=== PATIENT | female | born 1940 | race Caucasian/White ===

== ENCOUNTER 2019-01-24 13:41 | Outpatient (CLI) | payer MEDICARE, OTHER ==
--- NOTE | 2019-01-24 14:04 | RAD ---
Lumbar spine 2-3 view CLINICAL HISTORY: Pain FINDINGS: No evidence of significant subluxation or abnormal translational motion. There is multileve l degenerative change of the lumbar spine demonstrate, on the basis of lateral views. No compression fracture. IMPRESSION: No significant subluxation or translational motion identified.
== END 2019-01-24 13:42 | disposition home or self-care (01) ==
LOC: TBSIIMAG 13:41
PROVIDERS: ATTEND Neurological Surgery
DX: M54.5 Low back pain (principal)
CPT/HCPCS: 72100

== ENCOUNTER 2019-03-30 07:41 | Observation (INO) | payer MEDICARE, OTHER ==
--- NOTE | 2019-03-29 22:14 | HP ---
REASON FOR ADMISSION: "I am here for my spine surgery." HISTORY OF PRESENT ILLNESS: Ms. Saenz is a very pleasant 78-year-old woman who came to our [facility] in December for evaluation of back and left leg pain. She had low back pain for years and in the 5 months leading up to her evaluation, it began radiating down her left leg to the lateral part of the calf and to the top of the foot. She developed some weakness in lifting her left toes off the floor. She went through medical management, injections in the spine and she continued to have some worsening numbness and weakness in the left leg. She eventually sought medical attention and an MRI scan was done. Head MRI scan showed lateral recess stenosis that was fairly severe around the L5 nerve root at the L4-L5 interspace. There was a moderate stenosis at L5-S1 on the left. We have offered her surgery and she is here to proceed with that. PAST MEDICAL HISTORY: Arthritis, hyperlipidemia, cataracts, and thyroid dysfunction. PAST SURGICAL HISTORY: Hysterectomy, throat surgery, cataract surgery, skin cancer removal and intra-ocular injections for macular degeneration. ADMISSION MEDICATIONS: 1. Calcium. 2. Risedronate. 3. Fenofibrate. 4. Pravastatin. 5. Levothyroxine. ALLERGIES: NO KNOWN DRUG ALLERGIES. SOCIAL HISTORY: Ms. Saenz is a former smoker, but does not use nicotine currently. She takes no drugs and does not use alcohol. FAMILY HISTORY: Both parents are . There is no family history of bleeding diathesis or anesthesia complication. REVIEW OF SYSTEMS: Review of symptoms otherwise negative. PHYSICAL EXAMINATION: GENERAL: Ms. Saenz is 5 feet 9 inches tall, weighs about 170 pounds. NEUROLOGIC: Ms. Saenz is awake and alert. Her speech is fluent. There is no dysarthria or dysphagia. Her cranial nerves are grossly intact. On motor examination, there is weakness in the left ankle. The anterior tib and the EHL are weak on the left compared to the right. The hip flexors, the hamstrings, the quadriceps, the toe flexors and the gastrocnemius all have normal strength bilaterally. The knee jerks and ankle jerks are normal and symmetric. There is no Babinski. Sensory examination shows L5, decreased sensation on the left side compared to a normal right side. The gait is notable for a footdrop on the left and she has a steppage type gait, because of the weakness. ADMISSION FINDINGS AND TEST RESULTS: MR imaging of lumbar spine shows disk disease at L4-5 causing severe left-sided lateral recess stenosis and compression of the L5 nerve root. There was moderate stenosis around the L5 nerve root at L5-S1. IMPRESSION: L5 radiculopathy from disk disease. PLAN: I have offered Ms. Saenz, the surgical procedure to treat her disk disease and decompress the L5 nerve root. She would like to proceed. Informed consent: In the office, we discussed indications, risks, benefits, alternatives, and expected outcomes from surgery. The risks we discussed included, but were not limited to, bleeding, infection, CSF leak, nerve damage, cauda equina injury, paralysis, incontinence, wheelchair dependence, cardiopulmonary complications of anesthesia, and . Future risks include spinal instability and need for future spine surgery. She understands all these risks and wants to proceed. Job ID: [id number]
[2019-03-30 09:36] LABS: Hemoglobin 15.3 g/dL (12.0-16.0); Mean Corpuscular HGB CONC 33.7 g/dL (32.0-36.0); Mean Corpuscular Hemoglobin 31.7 pg (27.0-31.0); Mean Corpuscular Volume 93.9 fL (78.0-98.0); Mean Platelet Volume 8.7 fL (7.4-10.4); Platelet Count 148 thou/uL (130-400); RBC Distribution Width 11.5 % (11.5-14.5); Red Blood Cell (RBC) Count 4.84 mill/uL (4.20-5.40); White Blood Cell (WBC) Count 8.1 thou/uL (4.8-10.8)
[2019-03-30] MEDS ORDERED: PROPOFOL 200 MG/20 ML VIAL ONE (09:55)
[2019-03-30] MEDS ORDERED: Glycopyrrolate 0.2 MG/ML 5 ML SYRINGE ONE (09:55)
[2019-03-30] MEDS ORDERED: ePHEDrine/0.9% NaCl/PF SYRINGE 50 mg/10 ml ONE (09:55)
[2019-03-30] MEDS ORDERED: Rocuronium Bromide 10 MG/ML (10ML VIAL) ONE (09:55)
[2019-03-30] MEDS ORDERED: Ondansetron PF 4 MG/2 ML Vial ONE (09:55)
[2019-03-30] MEDS ORDERED: Lidocaine 1% PF 5 ML VIAL ONE ×2 (09:55→10:40)
[2019-03-30] MEDS ORDERED: Ketorolac Tromethamine 30 MG/ML VIAL ONE (09:55)
[2019-03-30] MEDS ORDERED: PROPOFOL 20 ML ONE (10:40)
[2019-03-30] MEDS ORDERED: Rocuronium Bromide 50 MG/5 ML VIAL ONE (10:40)
[2019-03-30 11:19] LABS: INR-International Normal Ratio 1.1; PTT 29.5 SEC (22.9-36.1); Prothrombin Time 13.8 SEC (12.0-14.7)
[2019-03-30] MEDS ORDERED: Thrombin 5000 UNITS/5 ML VIAL ONE (11:35)
[2019-03-30] MEDS ORDERED: Bupivacaine PF 0.5% 30 ML VIAL ONE (11:35)
[2019-03-30] MEDS ORDERED: Fentanyl 100 MCG/2 ML VIAL ONE (11:52)
[2019-03-30] MEDS ORDERED: Nitroglycerin 2% Ointment 1 INCH/1 GM Packet ONE ×2 (12:33→12:50)
[2019-03-30] MEDS ORDERED: Nitroglycerin 50 MG/250 ML BOT 250 ML ONE (12:58)
[2019-03-30] MEDS ORDERED: HYDROcodone/Acetaminophen 7.5/325 mg Tablet PO PRN ×2 (14:17)
[2019-03-30] MEDS ORDERED: Ondansetron PF 4 MG/2 ML Vial IVP PRN (14:17)
[2019-03-30] MEDS ORDERED: Morphine 2 MG/ML SYRINGE SLOW IVP PRN (14:17)
[2019-03-30] MEDS ORDERED: diphenhydrAMINE 25 MG CAP PO PRN (14:17)
[2019-03-30] MEDS ORDERED: tiZANidine HCl 4 MG TAB PO PRN (14:17)
[2019-03-30] MEDS ORDERED: Morphine 4 MG/ML VIAL SLOW IVP PRN (14:17)
[2019-03-30] MEDS ORDERED: Milk Of Magnesia 30 ML UDCUP PO PRN (14:17)
[2019-03-30] MEDS ORDERED: Promethazine HCl 25 MG/ML VIAL IM PRN ×2 (14:17→14:31)
[2019-03-30] MEDS ORDERED: Acetaminophen/Codeine 30-300mg Tablet PO PRN ×2 (14:17)
[2019-03-30] MEDS ORDERED: Bisacodyl 10 MG SUPP PR PRN (14:17)
[2019-03-30] MEDS ORDERED: Promethazine 25 MG TAB PO PRN (14:17)
[2019-03-30] MEDS ORDERED: Promethazine HCl 12.5 MG SUPP PR PRN (14:17)
[2019-03-30] MEDS ORDERED: diphenhydrAMINE 50 MG/ML VIAL IVP PRN (14:17)
[2019-03-30] MEDS ORDERED: Mag-Al 1200 mg/1200 mg/30 ML UDCUP PO PRN (14:17)
[2019-03-30] MEDS ORDERED: Acetaminophen 650 MG Suppository PR PRN (14:17)
[2019-03-30] MEDS ORDERED: Acetaminophen 325 MG TAB PO PRN (14:17)
[2019-03-30] MEDS ORDERED: RISEDRONATE SODIUM 150 MG PO SCH (14:30)
[2019-03-30] MEDS ORDERED: Morphine Sulfate 2 MG/ML SYRINGE SLOW IVP PRN (14:31)
[2019-03-30] MEDS ORDERED: Ondansetron HCl/PF 4 MG/2 ML Vial IVP PRN (14:31)
[2019-03-30] MEDS ORDERED: PACU-Morphine 4MG/ML VIAL SLOW IVP PRN (14:31)
[2019-03-30] MEDS ORDERED: Promethazine HCl 25 MG/ML VIAL SLOW IVP PRN (14:31)
[2019-03-30] MEDS ORDERED: HYDROmorphone 2 MG/ML VIAL SLOW IVP PRN (14:31)
[2019-03-30] MEDS ORDERED: Scopolamine 1.5 mg/72 hour Patch TD SCH (15:00)
[2019-03-30 16:59] VITALS: BMI 29.2
[2019-03-30] MEDS: Sodium Chloride 0.9% 1,000 ML IV SCH (17:10)
[2019-03-30] MEDS: CEFAZOLIN 2 GM in Premix Bag 1 BAG IVPB SCH (17:12)
--- NOTE | 2019-03-30 17:46 | OP ---
DATE OF PROCEDURE: 03/30/2019 SUPERVISOR COREMAKER: Aman Centeno PA-C PREOPERATIVE INDICATION: Treat pain and prevent neurological deterioration. PREOPERATIVE DIAGNOSIS: L4-L5 intervertebral disk disease with L5 radiculopathy, left greater than right. POSTOPERATIVE DIAGNOSIS: L4-L5 intervertebral disk disease with L5 radiculopathy, left greater than right. PROCEDURE PERFORMED: Partial hemilaminectomy, medial facetectomy, and microdiskectomy, left L4-L5 and right L4-L5. PREOPERATIVE MEDICATION: Ancef 2 g IV. DRAIN NUMBER: Zero. DRAIN TYPE: None. DESCRIPTION OF PROCEDURE: The patient was brought to the operating room. General endotracheal anesthesia was induced. The patient was positioned prone on the operating table with chest and hips supported by gel-filled chest rolls. A lateral fluoro radiograph was used to plan our lumbar incision. The lumbar skin was sterilely prepped and draped. We opened our incision in midline with a 10 blade knife. We controlled bleeding with bipolar and monopolar cautery. We dissected to the thoracodorsal fascia. We first incised the fascia left of the midline and reflected the paraspinal muscles off the spinous process and lamina of L4 and L5. We placed a marker on the facet joint and took a lateral fluoro radiograph to confirm the level upon which we were operating. We then used Kerrison rongeur to fashion a partial hemilaminectomy and medial facetectomy. We removed yellow ligament and then brought the operating microscope into the field. Under microscopic magnification and using microsurgical techniques, we carefully completed our medial facetectomy and foraminotomy. We identified the common thecal sac and the traversing L5 nerve root. We gently retracted these medially and ventral to these, we found intervertebral disk protrusion. We incised the annulus and removed disk contents using curettes and rongeurs. We reached into the interspace and all loose fragments of disk were removed. The remainder of the disk was firmly adherent to the endplates. We irrigated with bacitracin irrigation. We performed enough of a foraminotomy over the L5 nerve root. Then, a Morley ball could pass through the newly decompressed lateral recess and out the foramen without impingement. We then turned our attention to the right side. We incised the fascia right of the midline and reflected paraspinal muscles off the spinous process and lamina of L4 and L5 on the right and took another radiograph to confirm that we were still at the L4-L5 interspace. We performed small medial facetectomy, hemilaminectomy, and foraminotomy. We removed yellow ligament. We decompressed the L5 nerve root in the lateral recess and out the foramen. Here, the annulus was more calcified and we did not open it. We irrigated copiously with bacitracin irrigation. We infused local anesthetic in the paraspinal muscles on both sides. We closed the wound in anatomical layers and we applied a sterile dressing. This was a clean case, no contamination. Job ID: [id number]
[2019-03-30 18:04] LABS: ALT (SGPT) 21 U/L (8-55); AST (SGOT) 19 U/L (5-34); Albumin 3.5 g/dL (3.4-4.8); Alkaline Phosphatase 28 U/L (40-110); Anion Gap 18 mmol/L (10-20); BUN (Urea Nitrogen) 15 mg/dL (9.8-20.1); Bilirubin, Total 0.3 mg/dL (0.2-1.2); Calc. Creatinine Clearance 18 mL/min (70-130); Calcium 7.7 mg/dL (7.8-10.44); Carbon Dioxide 23 mmol/L (23-31); Chloride 96 mmol/L (98-107); Estimated GFR-MDRD 13; Globulin 2.3 g/dL (2.4-3.5); Glucose 330 mg/dL (83-110); Potassium 3.5 mmol/L (3.5-5.1); Protein, Total 5.8 g/dL (6.0-8.3); Sodium 133 mmol/L (136-145)
--- NOTE | 2019-03-30 18:42 | RAD ---
PA AND LATERAL CHEST: 03/30/19 HISTORY: Chest pain. Heart size is slightly enlarged. Mediastinal structures are unremarkable. Lungs are clear of infiltrates. There are no signs of failur e. The bones are demineralized. IMPRESSION: Minimal cardiomegaly. POS: MALACHI
[2019-03-30] MEDS ORDERED: Pravastatin Sodium 20 MG TAB PO SCH (21:00)
[2019-03-30] MEDS ORDERED: Famotidine/PF 20 mg/2ml Vial SLOW IVP SCH (21:00)
[2019-03-30] MEDS ORDERED: Fenofibrate 48 MG TAB PO SCH (21:00)
[2019-03-30] MEDS ORDERED: Sodium Chloride 0.9% 1,000 ML IV SCH (21:45)
[2019-03-30 23:02] LABS: Anion Gap 11 mmol/L (10-20); BUN (Urea Nitrogen) 16 mg/dL (9.8-20.1); CK (CPK) 306 U/L (29-168); Calc. Creatinine Clearance 49 mL/min (70-130); Calcium 8.2 mg/dL (7.8-10.44); Carbon Dioxide 25 mmol/L (23-31); Chloride 108 mmol/L (98-107); Estimated GFR-MDRD 44; Glucose 110 mg/dL (83-110); Potassium 4.1 mmol/L (3.5-5.1); Sodium 140 mmol/L (136-145)
[2019-03-30 23:12] LABS: Bacteria/HPF None Seen HPF (None Seen); Bilirubin Negative (Negative); Blood, Urine Negative (Negative); Clarity Clear (Clear); Glucose, Urine (Dipstick) Normal (Negative); Leukocyte 25 Leu/uL (Negative); Nitrite Negative (Negative); Protein, Urine (Dipstick) Negative (Neg-Trace); RBC/HPF 0-3 HPF (0-3); Squamous Epithelial None Seen HPF (0-3); Urobilinogen Normal mg/dL (Less than 2); WBC/HPF 0-3 HPF (0-3)
[2019-03-30 23:15] LABS: Urine Culture Reflex No No
[2019-03-30 23:28] LABS: Creatinine, Urine 36.65 mg/dL (47-110); Protein, Urine Random Quant Less than 10 mg/dL (1-14); Sodium, Urine 50 mmol/L (Not Available)
[2019-03-31] MEDS: CEFAZOLIN 2 GM in Premix Bag 1 BAG IVPB SCH (00:04)
[2019-03-31] MEDS: Sodium Chloride 0.9% 1,000 ML IV SCH (05:08)
[2019-03-31 05:10] LABS: Albumin 3.4 g/dL (3.4-4.8); Anion Gap 11 mmol/L (10-20); BUN (Urea Nitrogen) 15 mg/dL (9.8-20.1); BUN/Creatinine Ratio 13.27; CK (CPK) 303 U/L (29-168); Calc. Creatinine Clearance 51 mL/min (70-130); Calcium 8.3 mg/dL (7.8-10.44); Carbon Dioxide 23 mmol/L (23-31); Chloride 110 mmol/L (98-107); Estimated GFR-MDRD 46; Glucose 99 mg/dL (83-110); Phosphorus 2.7 mg/dL (2.3-4.7); Potassium 4.4 mmol/L (3.5-5.1); Sodium 140 mmol/L (136-145)
[2019-03-31 05:28] LABS: #Eosinphils 0.1 thou/uL (0.0-0.7); #Lymphocytes 1.5 thou/uL (1.20-3.40); #Monocytes 0.5 thou/uL (0.11-0.59); #Neutrophils 5.1 thou/uL (1.40-6.50); %Basophils 0.5 % (0.0-1.0); %Eosinophils 1.3 % (0.0-10.0); %Lymphocytes 20.7 % (21.0-51.0); %Neutrophils 70.6 % (42.0-75.0); Mean Corpuscular HGB CONC 33.7 g/dL (32.0-36.0); Mean Corpuscular Hemoglobin 31.8 pg (27.0-31.0); Mean Corpuscular Volume 94.5 fL (78.0-98.0); Mean Platelet Volume 7.7 fL (7.4-10.4); Platelet Count 146 thou/uL (130-400); RBC Distribution Width 11.4 % (11.5-14.5); Red Blood Cell (RBC) Count 3.76 mill/uL (4.20-5.40); White Blood Cell (WBC) Count 7.2 thou/uL (4.8-10.8)
[2019-03-31] MEDS ORDERED: Levothyroxine Sodium 88 MCG TAB PO SCH (06:00)
--- NOTE | 2019-03-31 06:51 | PRG ---
DATE OF SERVICE: 03/31/2019 Ms. Saenz is one day out from microdiskectomy on the left and hemilaminectomy with foraminotomy on the right at L4-5. She notices significant improvement in the function of her left ankle. Radiating radicular pain is gone and she did not even have leg cramps overnight. Have been stable with blood pressures between the 130s and 160s. There are no fevers recorded. On examination, there is improvement in the left footdrop. There is still numbness in L5 distribution, left greater than right. Ms. Saenz is ready for discharge. Her EKG changes suggest she has a reversible ischemia with a threshold blood pressure of around 120 to 130. She has been instructed to follow up with her teleprinter installer after discharge. Home-going instructions on wound care and activity restrictions as well. Followup arrangements have been made. Job ID: [id number] MTDD
--- NOTE | 2019-03-31 08:15 | CON ---
DATE OF CONSULTATION: 03/30/2019 TIME OF ASSESSMENT: 1900 hours. REASON FOR CONSULTATION: Medical management. HISTORY OF PRESENT ILLNESS: Ms. Saenz is an 78-year-old woman who apparently was taken to surgery today for a diskectomy of L4-L5 by Dr. Glez earlier today. Apparently during the procedure, the patient had ST-depression. She therefore was recommended admission to the hospital for observation. The patient states she did not experience any symptoms today. Reports feeling well and herself. Denies having any chest pain, palpitations, or shortness of breath. Denies having any history of heart disease. She feels well and herself at this present time and is without any complaints. PAST MEDICAL HISTORY: 1. Arthritis. 2. Hyperlipidemia. 3. Cataracts. 4. Thyroid dysfunction. PAST SURGICAL HISTORY: 1. Hysterectomy. 2. Throat surgery. 3. Cataract surgery. 4. Skin cancer removal. 5. Intra-ocular injections for macular degeneration. SOCIAL HISTORY: The patient is fully dependent. She is a former smoker but no longer smokes. Denies any alcohol consumption or illicit drug use. FAMILY HISTORY: Noncontributory. ALLERGIES: NO KNOWN DRUG ALLERGIES. CURRENT MEDICATIONS: 1. Fenofibrate. 2. Levothyroxine. 3. Pravastatin. 4. Risedronate. 5. MiraLAX. PHYSICAL EXAMINATION: GENERAL: The patient appears well-developed, well-nourished. She is in no acute distress. VITAL SIGNS: Temperature 96.2, pulse 58, blood pressure 162/72, respirations 16, and O2 saturation 98% on room air. HEENT: Normocephalic and atraumatic. Pupils are equal, round, and reactive to light. No sclerae icterus. Oropharynx is clear. NECK: Supple. LUNGS: Clear to auscultation bilaterally without any wheezes, rales, or rhonchi. CARDIAC: Regular rate and rhythm. ABDOMEN: Soft, nontender, and nondistended. Normoactive bowel sounds present. EXTREMITIES: No lower leg swelling or edema. NEUROLOGIC: Alert and oriented x3. SKIN: Warm and dry. IMPRESSION AND PLAN: Ms. Saenz is a pleasant 78-year-old woman who is status post lumbar spine diskectomy with concerns for ST-depression during her procedure, prompting referral for observation overnight. The patient did not have any associated symptoms and has no known history of coronary artery disease. She does have a history of hyperlipidemia and thyroid disorder. The patient is asymptomatic at present. Thank you for this consultation. We will continue to follow the patient with you. We will plan to do the followin. Continuous cardiac monitoring. 2. Trend troponin x2. We will obtain baseline laboratory studies including CBC and BMP. We will check a BNP as well as magnesium and TSH. 3. We will obtain baseline chest x-ray. 4. We will order an echo. The patient has never had any cardiac investigations in the past. 5. Gastrointestinal prophylaxis with famotidine. 6. For chronic constipation she has been restarted on her home medications by Dr. Glez. 7. Code status full. Surrogate decision maker is her , Cecil Saenz. ADDENDUM: Laboratory studies are notable for severe renal disease. The patient with a creatinine of 3.32 and a GFR of 13. Her BUN is 15. Initial troponin negative. The patient receiving IV fluids at 75 mL/h. Following discussion with Dr. Houser, he advised 1 liter bolus of normal saline. Consultation placed to Nephrology. We will repeat renal function following the bolus. BNP is normal at 95.4. Chest x-ray shows mild cardiomegaly. Therefore, we will proceed with echo. The patient remains asymptomatic and is without any complaints. Job ID: [id number]
[2019-03-31 12:12] VITALS: TEMP 98.3
[2019-03-31 13:31] VITALS: BP 157/66
--- NOTE | 2019-04-03 00:10 | EKG ---
Test Reason : Blood Pressure : / mmHG Vent. Rate : 055 BPM Atrial Rate : 055 BPM P-R Int : 200 ms QRS Dur : 086 ms QT Int : 462 ms P-R-T Axes : 058 -33 085 degrees QTc Int : 441 ms Sinus bradycardia with sinus arrhythmia Left axis deviation Abnormal ECG No previous ECGs available Confirmed by Leonid VALENZUELA ([id number]) on 04/03/2019 12:10:22 AM Referred By: IRENE Confirmed By:Leonid VALENZUELA
== END 2019-03-31 13:41 | disposition home or self-care (01) ==
LOC: SDC 07:41 → 2NO 14:43 → ERHOLD 15:05 → 2NO 17:26 → SDC 18:08
PROVIDERS: ADMIT Neurological Surgery; ATTEND Neurological Surgery
PROC: 01NB0ZZ Release Lumbar Nerve, Open Approach (ICD-10-PCS; principal; 2019-03-30)
PROC: 0ST20ZZ Resection of Lumbar Vertebral Disc, Open Approach (ICD-10-PCS; 2019-03-30)
DX: M48.061 Spinal stenosis, lumbar region without neurogenic claudication (principal); M51.16 Intervertebral disc disorders with radiculopathy, lumbar region; M48.07 Spinal stenosis, lumbosacral region; E78.5 Hyperlipidemia, unspecified; G47.30 Sleep apnea, unspecified; M19.90 Unspecified osteoarthritis, unspecified site; R94.31 Abnormal electrocardiogram [ECG] [EKG]; E03.9 Hypothyroidism, unspecified; Z87.891 Personal history of nicotine dependence; Z79.899 Other long term (current) drug therapy; Z99.89 Dependence on other enabling machines and devices
CPT/HCPCS: 36415; 71046; 76000; 80053; 80069; 81001; 82306; 82550; 82570; 83735; 83880; 83970; 84156; 84300; 84484; 85025; 85027; 85610; 85730; 93005; 93010; 93306; 94760; 96361; 96374; 96375; 96376; G0378; J0690; J1885; J2001; J2405; J2704; J3010; J3370; J3490; S0020; S0028

== ENCOUNTER 2022-07-14 10:15 | Outpatient (CLI) | payer MEDICARE, OTHER | END 2022-07-14 10:16 | disposition home or self-care (01) | LOC: TBSIIMAG 10:15 | PROVIDERS: ATTEND Physician Assistant | DX: M48.56XA Collapsed vertebra, not elsewhere classified, lumbar region, initial encounter for fracture (principal); M51.36 Other intervertebral disc degeneration, lumbar region; M51.37 Other intervertebral disc degeneration, lumbosacral region; M47.816 Spondylosis without myelopathy or radiculopathy, lumbar region | CPT/HCPCS: 72100 ==

== ENCOUNTER 2025-01-28 16:55 | Inpatient (IN) | payer MEDICARE, OTHER ==
[2025-01-28] MEDS ORDERED: Melatonin 3 MG TAB PO PRN (18:37)
[2025-01-28] MEDS ORDERED: Acetaminophen/Codeine 30-300mg Tablet PO PRN (18:37)
[2025-01-28] MEDS ORDERED: Ondansetron PF 4 MG/2 ML Vial IVP PRN (18:37)
[2025-01-28] MEDS ORDERED: Senokot S 8.6-50 MG TAB PO PRN (18:37)
[2025-01-28] MEDS ORDERED: Guaifenesin DM 100-10/5 ML UDCUP PO PRN (18:37)
[2025-01-28] MEDS ORDERED: Calcium Carbonate 500 MG ChewTAB PO PRN (18:37)
[2025-01-28] MEDS ORDERED: Pharmacy to Dose: VANC IVPB PRN (21:11)
[2025-01-28] MEDS ORDERED: Vancomycin 1 GM/200 ML (FROZEN) BAG ONE (21:17)
[2025-01-28] MEDS: Vancomycin 1 GM in Premix 1 BAG IVPB SCH (21:27)
[2025-01-28] MEDS ORDERED: Gabapentin 100 MG CAP ONE (21:40)
[2025-01-28] MEDS: Gabapentin 100 MG CAP PO SCH (21:50)
[2025-01-28] MEDS: VANCOMYCIN 1.75 GM/350 ML Premix BAG IVPB SCH (21:51)
[2025-01-28] MEDS: Simvastatin 10 MG TAB PO SCH (22:54)
[2025-01-29 01:49] VITALS: BMI 18.5
[2025-01-29] MEDS: Acetaminophen 325 MG TAB PO PRN (06:16)
[2025-01-29 07:52] LABS: #Basophils 0.05 10x3/uL (0.0-0.2); #Eosinophils 0.03 10x3/uL (0.0-0.7); #Monocytes 0.93 10x3/uL (0.11-0.59); #Neutrophils 10.14 10x3/uL (1.40-6.50); %Basophils 0.4 % (0.0-1.0); %Eosinophils 0.2 % (0.0-10.0); %Lymphocytes 8.6 % (21.0-51.0); %Monocytes 7.5 % (0.0-10.0); %Neutrophils 82.0 % (42.0-75.0); Hematocrit 32.3 % (36.0-47.0); Hemoglobin 10.5 g/dL (12.0-16.0); Mean Corpuscular Hemoglobin 30.5 pg (27.0-31.0); Mean Corpuscular Volume 93.9 fL (78.0-98.0); Platelet Count 208 10x3/uL (130-400); Red Blood Cell (RBC) Count 3.44 mill/uL (4.20-5.40); White Blood Cell (WBC) Count 12.38 10x3/uL (4.8-10.8)
[2025-01-29 08:13] LABS: Anion Gap 17 mmol/L (10-20); BUN (Urea Nitrogen) 31 mg/dL (9.8-20.1); Calc. Creatinine Clearance 20 mL/min (70-130); Calcium 8.7 mg/dL (7.8-10.44); Carbon Dioxide 20 mmol/L (23-31); Chloride 106 mmol/L (98-107); Glucose 105 mg/dL (83-110); Potassium 3.8 mmol/L (3.5-5.1); Sodium 139 mmol/L (136-145)
[2025-01-29] MEDS ORDERED: Vancomycin Dose by Levels Sliding Scale (Wt <71) FS SCH (08:30)
[2025-01-29] MEDS: Pantoprazole 40 MG VIAL IVP SCH (08:41)
[2025-01-29] MEDS: cefTRIAXone\\ROCEPHIN 2 GM in Sodium Chloride 0.9% 100 ML IVPB SCH (08:41)
[2025-01-29] MEDS: FLU (Fluad Triv) 25-26 (65UP)PF 45 MCG/0.5 ML Syringe IM ONE (08:44)
[2025-01-29] MEDS ORDERED: PROPOFOL 200 MG/20 ML VIAL ONE (13:31)
[2025-01-29] MEDS ORDERED: Ondansetron PF 4 MG/2 ML Vial ONE (13:34)
[2025-01-29] MEDS ORDERED: fentaNYL PF 100 MCG/2 ML SYRINGE ONE (13:36)
[2025-01-29] MEDS ORDERED: Oxybutynin 5 MG TAB PO PRN (14:04)
[2025-01-29] MEDS: Enoxaparin 30 MG (0.3 mL) SYRINGE SC SCH (21:31)
[2025-01-29 21:34] LABS: Vancomycin, Trough 14.3 ug/mL
[2025-01-30 05:50] LABS: #Basophils 0.03 10x3/uL (0.0-0.2); #Eosinophils Less than 0.03 10x3/uL (0.0-0.7); #Monocytes 0.46 10x3/uL (0.11-0.59); #Neutrophils 9.19 10x3/uL (1.40-6.50); %Basophils 0.3 % (0.0-1.0); %Eosinophils 0.0 % (0.0-10.0); %Lymphocytes 9.1 % (21.0-51.0); %Monocytes 4.2 % (0.0-10.0); %Neutrophils 84.3 % (42.0-75.0); Hematocrit 33.4 % (36.0-47.0); Hemoglobin 11.3 g/dL (12.0-16.0); Mean Corpuscular Hemoglobin 30.8 pg (27.0-31.0); Mean Corpuscular Volume 91.0 fL (78.0-98.0); Platelet Count 238 10x3/uL (130-400); Red Blood Cell (RBC) Count 3.67 mill/uL (4.20-5.40); White Blood Cell (WBC) Count 10.90 10x3/uL (4.8-10.8)
[2025-01-30 06:15] LABS: Vancomycin, Random 19.8 ug/mL (See Comment)
[2025-01-30 06:25] LABS: Anion Gap 11 mmol/L (10-20); BUN (Urea Nitrogen) 30 mg/dL (9.8-20.1); Calc. Creatinine Clearance 26 mL/min (70-130); Calcium 8.8 mg/dL (7.8-10.44); Carbon Dioxide 23 mmol/L (23-31); Chloride 108 mmol/L (98-107); Glucose 112 mg/dL (83-110); Magnesium 2.1 mg/dL (1.6-2.6); Potassium 4.2 mmol/L (3.5-5.1); Sodium 138 mmol/L (136-145)
[2025-01-31 06:26] LABS: #Basophils 0.04 10x3/uL (0.0-0.2); #Eosinophils 0.14 10x3/uL (0.0-0.7); #Monocytes 0.57 10x3/uL (0.11-0.59); #Neutrophils 7.62 10x3/uL (1.40-6.50); %Basophils 0.4 % (0.0-1.0); %Eosinophils 1.4 % (0.0-10.0); %Lymphocytes 15.8 % (21.0-51.0); %Monocytes 5.6 % (0.0-10.0); %Neutrophils 75.2 % (42.0-75.0); Hematocrit 32.2 % (36.0-47.0); Hemoglobin 10.4 g/dL (12.0-16.0); Mean Corpuscular Hemoglobin 30.0 pg (27.0-31.0); Mean Corpuscular Volume 92.8 fL (78.0-98.0); Platelet Count 240 10x3/uL (130-400); Red Blood Cell (RBC) Count 3.47 mill/uL (4.20-5.40); White Blood Cell (WBC) Count 10.13 10x3/uL (4.8-10.8)
[2025-01-31 06:37] LABS: Anion Gap 12 mmol/L (10-20); BUN (Urea Nitrogen) 30 mg/dL (9.8-20.1); Calc. Creatinine Clearance 29 mL/min (70-130); Calcium 8.7 mg/dL (7.8-10.44); Carbon Dioxide 23 mmol/L (23-31); Chloride 109 mmol/L (98-107); Glucose 93 mg/dL (83-110); Potassium 4.0 mmol/L (3.5-5.1); Sodium 140 mmol/L (136-145)
[2025-01-31] MEDS: Pantoprazole 40 MG DR.TAB PO SCH (08:13)
[2025-01-31] MEDS ORDERED: Pantoprazole 40 MG GRANULES PACKET PO SCH (09:00)
[2025-01-31 10:27] LABS: Glucose, Urine (Dipstick) Normal (Negative); Leukocyte 500 Leu/uL (Negative); Protein, Urine (Dipstick) 20 mg/dL (Neg-Trace); Specific Gravity, Urine 1.012 (1.002-1.036)
[2025-01-31 10:28] LABS: RBC/HPF 21-50 HPF (0-3); WBC/HPF Greater than 50 HPF (0-3)
[2025-01-31 10:46] LABS: Bacteria/HPF Rare-Few HPF (None Seen)
[2025-01-31 12:14] VITALS: BP 145/69; TEMP 98
== END 2025-01-31 13:42 | disposition home or self-care (01) | DRG 661 ==
LOC: ERS 16:55 → ERHOLD 18:32 → T4-B 23:53
PROVIDERS: ADMIT Student in an Organized Health Care Education/Training Program; ATTEND Internal Medicine
PROC: 0T768DZ Dilation of Right Ureter with Intraluminal Device, Via Natural or Artificial Opening Endoscopic (ICD-10-PCS; principal; 2025-01-30)
DX: N13.6 Pyonephrosis (principal); N17.9 Acute kidney failure, unspecified; E78.5 Hyperlipidemia, unspecified; E03.9 Hypothyroidism, unspecified; N18.30 Chronic kidney disease, stage 3 unspecified; I12.9 Hypertensive chronic kidney disease with stage 1 through stage 4 chronic kidney disease, or unspecified chronic kidney disease; B96.20 Unspecified Escherichia coli [E. coli] as the cause of diseases classified elsewhere; N35.92 Unspecified urethral stricture, female; Z79.890 Hormone replacement therapy; Z90.49 Acquired absence of other specified parts of digestive tract; Z95.0 Presence of cardiac pacemaker; Z90.710 Acquired absence of both cervix and uterus; Z98.890 Other specified postprocedural states; Z87.891 Personal history of nicotine dependence
CPT/HCPCS: 36415; 80048; 80202; 81001; 83735; 84100; 85025; 86141; 87086; 90653; 99285; A4333; C1769; C2617; J0696; J1100; J1650; J2405; J2470; J2704; J3373; J3375; J7120; Q9967

== ENCOUNTER 2025-02-12 08:12 | Day surgery (SDC) | payer MEDICARE, OTHER ==
[2025-02-09 08:55] VITALS: BMI 30.2
[2025-02-12] MEDS ORDERED: PROPOFOL 20 ML ONE (10:24)
[2025-02-12] MEDS ORDERED: Rocuronium Bromide 10 MG/ML (10ML VIAL) ONE ×2 (10:25→11:35)
[2025-02-12] MEDS ORDERED: LevoFLOXacin D5W 500 mg (100 mL) BAG ONE (10:50)
[2025-02-12] MEDS ORDERED: fentaNYL PF 100 MCG/2 ML SYRINGE ONE (11:12)
[2025-02-12 11:28] LABS: INR-International Normal Ratio 1.2; Prothrombin Time 14.8 sec (12.0-14.7)
[2025-02-12 11:29] LABS: PTT 32.1 sec (22.9-36.1)
[2025-02-12] MEDS ORDERED: PROPOFOL 200 MG/20 ML VIAL ONE (11:35)
[2025-02-12] MEDS ORDERED: SUGAMMADEX SODIUM 200 MG/2 ML VIAL ONE (11:43)
[2025-02-12] MEDS ORDERED: Ondansetron PF 4 MG/2 ML Vial ONE (11:43)
[2025-02-12] MEDS ORDERED: hydrALAZINE 20 MG/ML VIAL ONE (12:17)
[2025-02-12] MEDS ORDERED: Oxybutynin 5 MG TAB ONE (12:36)
[2025-02-20 16:14] LABS: CA Oxalate Dihydrate 30 % (.); CA Oxalate Monohydrate 40 % (.); Color Tan (.); Stone Weight 44 mg (.)
== END 2025-02-12 15:50 | disposition home or self-care (01) ==
LOC: SDC 08:12
PROVIDERS: ATTEND Urology
DX: N13.2 Hydronephrosis with renal and ureteral calculous obstruction (principal); N35.92 Unspecified urethral stricture, female; Z90.710 Acquired absence of both cervix and uterus; Z95.0 Presence of cardiac pacemaker; Z98.890 Other specified postprocedural states; Z98.49 Cataract extraction status, unspecified eye
CPT/HCPCS: 74420; 82365; 85610; 85730; C1747; C1758; C1769 ×2; C2617; C9761; J0360; J1100; J1956; J2405; J2704; Q9967; 36415; 88300